=== PATIENT | male | born 1970 | race Caucasian/White ===

== ENCOUNTER 2020-11-20 16:30 | Emergency (ER) | payer BC, OTHER ==
[2020-11-20 16:53] VITALS: TEMP 98.3
[2020-11-20] MEDS ORDERED: SODIUM CHLORIDE 0.9% 1,000 ML IV STA (17:22)
[2020-11-20] MEDS ORDERED: MORPHINE SULFATE 2 MG/ML SYRINGE IVP ONE (17:24)
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
--- NOTE | 2020-11-20 18:11 | XR ---
EXAMINATION TYPE: XR chest 1V portable DATE OF EXAM: 11/20/2020 COMPARISON: NONE HISTORY: Pain TECHNIQUE: Single view FINDINGS: Heart and mediastinum are normal. Lungs are clear. Diaphragm is normal. Bony thorax appears intact. IMPRESSION: Normal chest.
--- NOTE | 2020-11-20 18:12 | XR ---
EXAMINATION TYPE: XR pelvis AP view DATE OF EXAM: 11/20/2020 COMPARISON: NONE HISTORY: Pain TECHNIQUE: Single view FINDINGS: Pelvic ring is intact. Proximal femurs and hip joints are intact. Sacroiliac joints are int act. IMPRESSION: Normal pelvis. No fracture.
--- NOTE | 2020-11-20 18:14 | XR ---
EXAMINATION TYPE: XR ankle complete RT DATE OF EXAM: 11/20/2020 COMPARISON: NONE HISTORY: Pain TECHNIQUE: 3 views FINDINGS: There is soft tissue swelling over the lateral malleolus. Ankle mortise is anatomic. There is small 5 mm chip fracture of the tip of the distal fibula. Talus is intact. IMPRESSION: Small chip fracture of the distal fibula with soft tissue swelling.
--- NOTE | 2020-11-20 18:15 | XR ---
EXAMINATION TYPE: XR hand complete LT DATE OF EXAM: 11/20/2020 COMPARISON: NONE HISTORY: Pain TECHNIQUE: 3 views FINDINGS: The metacarpals appear intact. Fingers appear intact. I see no fracture nor dislocation. Ca rpal bones appear intact. IMPRESSION: Negative left hand exam.
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
[2020-11-20 18:51] LABS: Basophils # (A) 0.1 k/uL (0-0.2); Basophils % (A) 1 %; Eosinophils # (A) 0.3 k/uL (0-0.7); Eosinophils % (A) 2 %; HCT 46.4 % (39.0-53.0); HGB 15.8 gm/dL (13.0-17.5); Lymphocytes # (A) 1.7 k/uL (1.0-4.8); Lymphocytes % (A) 13 %; Mean Platelet Volume 8.8; Monocytes # (A) 1.2 k/uL (0-1.0); Monocytes % (A) 10 %; Neutrophils # (A) 8.8 k/uL (1.3-7.7); Neutrophils % (A) 70 %; Platelet Count 251 k/uL (150-450); RDW 12.6 % (11.5-15.5); WBC 12.6 k/uL (3.8-10.6)
[2020-11-20 19:02] LABS: ALT 19 U/L (4-49); AST 22 U/L (17-59); African American GFR (CKD) >90 (>60 ml/min/1.73 sqM); Albumin 4.4 g/dL (3.5-5.0); Alkaline Phosphatase 91 U/L (38-126); Anion Gap 9 mmol/L; Blood Urea Nitrogen 15 mg/dL (9-20); Calcium 9.4 mg/dL (8.4-10.2); Carbon Dioxide 25 mmol/L (22-30); Chloride 102 mmol/L (98-107); Glucose 96 mg/dL (74-99); Non-African American GFR(CKD) >90 (>60 ml/min/1.73 sqM); Potassium 4.2 mmol/L (3.5-5.1); Sodium 136 mmol/L (137-145); Total Bilirubin 0.4 mg/dL (0.2-1.3); Total Protein 7.5 g/dL (6.3-8.2)
[2020-11-20] MEDS ORDERED: MORPHINE SULFATE 4 MG/ML SYRINGE IVP STA (19:13)
[2020-11-20 19:40] LABS: Appearance,Urine Clear (Clear); Bilirubin,Urine Negative (Negative); Blood,Urine Trace (Negative); Color,Urine Yellow; Glucose,Urine (UA) Negative (Negative); Ketones,Urine Negative (Negative); Leukocyte Esterase,Urine Negative (Negative); Nitrite,Urine Negative (Negative); PH, Urine 5.5 (5.0-8.0); Protein,Urine Negative (Negative); Specific Gravity,Urine 1.017 (1.001-1.035); Squamous Epithelial Cell,Urine <1 /hpf (0-4); Urobilinogen,Urine <2.0 mg/dL (<2.0); WBC,Urine 2 /hpf (0-5)
[2020-11-20 20:34] VITALS: BP 136/79; PULSE 78; RESP 18
== END 2020-11-20 20:35 | disposition home or self-care (01) ==
LOC: EC 16:30
DX: S82.831A Other fracture of upper and lower end of right fibula, initial encounter for closed fracture (principal); S80.211A Abrasion, right knee, initial encounter; S00.91XA Abrasion of unspecified part of head, initial encounter; S49.92XA Unspecified injury of left shoulder and upper arm, initial encounter; S00.211A Abrasion of right eyelid and periocular area, initial encounter; H53.9 Unspecified visual disturbance; H91.90 Unspecified hearing loss, unspecified ear; J45.909 Unspecified asthma, uncomplicated; Z79.899 Other long term (current) drug therapy; Z88.2 Allergy status to sulfonamides; Z88.1 Allergy status to other antibiotic agents; V29.9XXA Motorcycle rider (driver) (passenger) injured in unspecified traffic accident, initial encounter; Y92.410 Unspecified street and highway as the place of occurrence of the external cause
CPT/HCPCS: 36415; 80053; 85025; 81001; 72170; 73030; 73130; 73610; 71045; 72125; 70450; 99284; 96374; 96376; 96361; J2270 ×2